=== PATIENT | female | born 1955 | race Hispanic/Latino ===

== ENCOUNTER 2018-01-29 06:14 | Day surgery (SDC) | payer BC ==
--- OUTSIDE RECORDS SUMMARY | 2018-01-29 06:31 | XMS REPORT ---
:1955 [facility] Address [address] [place] [address] Dr. [address]. [address] [place] [address] Care Team Providers Name Role Phone DR MONA FRENCH Unavailable Unavailable Problems This patient has no known problems. Allergies, Adverse Reactions, Alerts This patient has no known allergies or adverse reactions. Medications This patient has no known medications. Encounters Start End Encounter Admission Attending Care Care Encounter Date/Time Date/Time Type Type Clinicians Facility Department ID 2017-02-22 2017-02-22 Outpatient C CARLOTTA FRENCH [facility] [place] [id number] 04:02:00 07:30:00 MONA
[2018-01-29] MEDS ORDERED: Ringers Lactate 1,000 ML IV ONE (07:00)
[2018-01-29] MEDS ORDERED: ONDANSETRON 4 MG/2 ML VIAL ONE (07:19)
[2018-01-29] MEDS ORDERED: PROPOFOL 200 MG/20 ML VIAL IV ONE (07:53)
[2018-01-29] MEDS ORDERED: GLYCOPYRROLATE 0.2 MG/ML SYR ONE (07:53)
[2018-01-29] MEDS ORDERED: LIDOCAINE 1% MPF 5 ML VIAL ONE (07:53)
[2018-01-29 12:55] VITALS: TEMP 97.6; O2SAT 100
[2018-01-29 13:04] VITALS: BP 123/88
== END 2018-01-29 08:50 | disposition home or self-care (01) ==
LOC: OR 06:14
PROVIDERS: ATTEND Surgery
PROC: 0DJD8ZZ Inspection of Lower Intestinal Tract, Via Natural or Artificial Opening Endoscopic (ICD-10-PCS; principal; 2018-01-29 07:30)
DX: K57.30 Diverticulosis of large intestine without perforation or abscess without bleeding (principal); K62.3 Rectal prolapse; K64.8 Other hemorrhoids; K64.4 Residual hemorrhoidal skin tags; K21.9 Gastro-esophageal reflux disease without esophagitis; I10 Essential (primary) hypertension; I25.10 Atherosclerotic heart disease of native coronary artery without angina pectoris; E07.9 Disorder of thyroid, unspecified; M19.90 Unspecified osteoarthritis, unspecified site; Z95.5 Presence of coronary angioplasty implant and graft; Z88.6 Allergy status to analgesic agent
CPT/HCPCS: J2405; J2704

== ENCOUNTER 2023-02-13 05:51 | Day surgery (SDC) | payer OTHER ==
[2023-02-13] MEDS ORDERED: Ringers Lactate 1,000 ML IV ONE (06:18)
[2023-02-13] MEDS ORDERED: propofoL 200 MG/20 ML VIAL IV ONE (07:14)
[2023-02-13] MEDS ORDERED: LIDOCAINE 1% MPF 5 ML VIAL ONE (07:14)
[2023-02-13 07:20] LABS: Absolute Lymphocytes (CBC) 1.3 K/uL (0.7-4.9); Hematocrit 35.4 % (36.0-45.0); Lymphocytes % 23.2 % (15.3-44.8); MPV 7.1 fL (7.6-11.3); Platelets 218 thou/uL (152-406); RBC Red Blood Cell Count 3.61 M/uL (3.86-4.86)
[2023-02-13 07:28] LABS: Protime INR 1.14
[2023-02-13 08:43] VITALS: O2SAT 100
[2023-02-13 09:16] VITALS: BP 142/47; TEMP 98.6
== END 2023-02-13 09:03 | disposition home or self-care (01) ==
LOC: OR 05:51
PROVIDERS: ATTEND Surgery
PROC: 0DJD8ZZ Inspection of Lower Intestinal Tract, Via Natural or Artificial Opening Endoscopic (ICD-10-PCS; principal; 2023-02-13 07:30)
DX: R19.5 Other fecal abnormalities (principal); R14.0 Abdominal distension (gaseous); K59.00 Constipation, unspecified; R10.9 Unspecified abdominal pain; R10.84 Generalized abdominal pain; K57.30 Diverticulosis of large intestine without perforation or abscess without bleeding; K64.8 Other hemorrhoids; K64.4 Residual hemorrhoidal skin tags
CPT/HCPCS: 85025; 36415; 85610; 85730; 45378; J2704; J2001; J7120